=== PATIENT | male | born 1945 | race Native Hawaiian/Other Pacific Islander ===

== ENCOUNTER 2020-05-20 11:34 | Outpatient (CLI) | payer OTHER | END 2020-05-20 21:54 | disposition home or self-care (01) | LOC: INF 11:34 | PROVIDERS: ATTEND Internal Medicine | DX: Z23 Encounter for immunization (principal) | CPT/HCPCS: 96372 ==

== ENCOUNTER 2020-06-17 11:37 | Outpatient (CLI) | payer OTHER | END 2020-06-17 21:11 | disposition home or self-care (01) | LOC: INF 11:37 | PROVIDERS: ATTEND Internal Medicine | DX: Z23 Encounter for immunization (principal) | CPT/HCPCS: 96372 ==